=== PATIENT | male | born 2000 | race Caucasian/White ===

== ENCOUNTER 2019-07-09 04:10 | Emergency (ER) | payer OTHER ==
[~2019-07-09] VITALS: Ht 190.5 cm; Wt 91.0 kg
[2019-07-09] MEDS ORDERED: LIDOCAINE 1% INJ 20 ML 20 ML VIAL INJ ONE (04:30)
[2019-07-09] MEDS ORDERED: TRIM/SULFAMETH 160/800 (SEPTRA DS) TAB PO ONE (04:30)
[2019-07-09] MEDS ORDERED: SODIUM BICARB 8.4% 50 MEQ/50 ML VIAL IV ONE (04:30)
--- NOTE | 2019-07-09 04:54 | ED General ---
General Chief Complaint: Skin/Wound Problems Stated Complaint: INFECTION LEFT HAND,RING FINGER Nursing Triage Note: left 3rd finger abcess around fingernail Nursing Sepsis Screen: No Definite Risk Source of Information: Patient Exam Limitations: No Limitations History of Present Illness Date Seen by Provider: Jul 09, 2019 Time Seen by Provider: 04:12 Initial Comments This 19-year-old young man presents to the emergency room with abscess on the distal left fourth finger. It started with erythema 2-3 days ago and developed into an abscess. He denies fever. There was no known break in the skin or entry point. There has been no drainage. He denies any other health problems. Allergies and Home Medications Allergies Coded Allergies: Penicillins (Verified Allergy, Unknown, 07/09/19) Home Medications Sulfamethoxazole/Trimethoprim 1 Each Tablet, 1 EACH PO BID Prescribed by: ROMANA MAYS on 07/09/19 0457 Patient Home Medication List Home Medication List Reviewed: Yes Review of Systems Review of Systems Constitutional: no symptoms reported Musculoskeletal: see HPI Skin: see HPI Psychiatric/Neurological: No Symptoms Reported Past Mdqlgyw-Madmte-Znevuk Hx Past Med/Social Hx: Reviewed Nursing Past Med/Soc Hx Patient Social History Alcohol Use: Occasionally Uses Recreational Drug Use: Yes Drug of Choice: marijuana 2nd Hand Smoke Exposure: No Recent Foreign Travel: No Contact w/Someone Who Travel: No Recent Infectious Disease Expo: No Recent Hopitalizations: No Physical Abuse: No Sexual Abuse: No Mistreated: No Fear: No Immunizations Up To Date Tetanus Booster (TDap): Less than 5yrs Seasonal Allergies Seasonal Allergies: No Past Medical History Surgeries: No Respiratory: No Cardiac: No Neurological: No Genitourinary: No Gastrointestinal: No Musculoskeletal: No Endocrine: No HEENT: No Cancer: No Psychosocial: No Integumentary: No Blood Disorders: No Physical Exam Vital Signs Vital Signs - First Documented 07/09/19 04:10 Temp 36.7 Pulse 79 Resp 18 B/P (MAP) 118/79 (92) Pulse Ox 98 Capillary Refill : Less Than 3 Seconds Height, Weight, BMI Height: '" Weight: lbs. oz. kg; 25.00 BMI Method: General Appearance: No Apparent Distress, WD/WN HEENT: PERRL/EOMI, Normal ENT Inspection Respiratory: Lungs Clear, Normal Breath Sounds, No Accessory Muscle Use Cardiovascular: Regular Rate, Rhythm, No Edema, No Murmur Extremity: Other (the distal phalanx of the left fourth finger is erythematous, tender, swollen, and full with a fluctuant abscess on the ulnar aspect. Sensation and capillary refill intact) Neurologic/Psychiatric: Alert, Oriented x3, No Motor/Sensory Deficits, Normal Mood/Affect Skin: Normal Color, Warm/Dry, Other (see extremity exam above) Procedures/Interventions I&D : Blade Size: 11 Progress Skin is a base the finger was cleaned with alcohol. Digital block was performed with buffered lidocaine. Approximately 5-6 mL was injected. The abscess surface was then scrubbed with chlorhexidine wipes. A 5 mm incision was made over the most fluctuant region just lateral to the nailbed. Foul-smelling purulent drainage was expressed from the wound in copious amounts. Culture was obtained. Wound was dressed with gauze. Patient tolerated the procedure well. Digital block and incision and drainage was performed by Sloan Farr, MS 3, under my direct supervision. Progress/Results/Core Measures Suspected Sepsis Recent Fever Within 48 Hours: No Infection Criteria Present: None New/Unexplained Altered Menta: No Sepsis Screen: No Definite Risk SIRS Temperature: Pulse: 79 Respiratory Rate: 18 Blood Pressure 118 /79 Mean: 92 Results/Orders My Orders Orders - ROMANA BEAN MD Sulfamethoxazole/Trimet Ds Tab (Bactrim (07/09/19 04:30) Sodium Bicarbonate 8.4% Vial (Sodium Bic (07/09/19 04:30) Lidocaine 1% Inj 20 Ml (Xylocaine 1% Inj (07/09/19 04:30) Wound Culture (07/09/19 04:22) Medications Given in ED Current Medications Medications Dose Ordered Sig/Alonso Route Start Time Stop Time Status Last Admin Dose Admin Lidocaine HCl 20 ml ONCE ONCE INJ 07/09/19 04:30 07/09/19 04:31 DC 07/09/19 04:31 20 ML Sodium Bicarbonate 50 meq ONCE ONCE IV 07/09/19 04:30 07/09/19 04:31 DC 07/09/19 04:31 50 MEQ Trimethoprim/ Sulfamethoxazole 1 ea ONCE ONCE PO 07/09/19 04:30 07/09/19 04:31 DC 07/09/19 04:29 1 EA Vital Signs/I&O 07/09/19 07/09/19 04:10 04:56 Temp 36.7 36.7 Pulse 79 79 Resp 18 18 B/P (MAP) 118/79 (92) 118/79 (92) Pulse Ox 98 98 Capillary Refill : Less Than 3 Seconds Blood Pressure Mean: 92 Progress Note : Progress Note Digital block followed by incision and drainage was performed. Patient jason erated the procedure well. Copious amounts of foul purulent drainage were expressed from the wound. A culture was obtained. Patient received a dose of Bactrim DS prior to dismissal. Departure Impression Primary Impression: Abscess of finger Qualified Codes: L02.512 - Cutaneous abscess of left hand Disposition: HOME, SELF-CARE Condition: Improved Departure-Patient Inst. Decision time for Depature: 04:47 Referrals: [facility] (PCP/Family) Primary Care Physician Patient Instructions: Abscess Incision and Drainage Add. Discharge Instructions: When you return home remove the dressing and soak your finger in warm soapy water for about 20 minutes to encourage continued drainage. Do this 2 or 3 times a day until the wound closes up and begins to heal. Continue to cover wi th a dressing until drainage stops. Complete the entire course of your antibiotics as prescribed. Return to the emergency room if you have worsening symptoms especially if you have spreading of redness up your finger or develop fevers over 100. You may take ibuprofen up to 600 mg every 6 hours and/or Tylenol (acetaminophen) up to 1000 mg every 6 hours as needed for pain. All discharge instructions reviewed with patient and/or family. Voiced understanding. Scripts Sulfamethoxazole/Trimethoprim (Bactrim Ds Tablet) 1 Each Tablet 1 EACH PO BID, #14 TAB Prov: ROMANA BEAN MD 07/09/19 ROMANA BEAN MD Jul 09, 2019 04:54
[2019-07-09 04:56] VITALS: BP 118/79
[2019-07-09] MEDS ORDERED: SULF1TAB35 PO (04:57)
== END 2019-07-09 04:56 | disposition home or self-care (01) ==
LOC: ER 04:13
DX: L02.512 Cutaneous abscess of left hand (principal); Z88.0 Allergy status to penicillin
CPT/HCPCS: 87070; 87077; 87205